=== PATIENT | female | born 1980 | race Caucasian/White ===

== ENCOUNTER → 2018-01-12 11:37 | Outpatient (CLI) | payer MEDICARE, OTHER | END | disposition home or self-care (01) | LOC: D.US 11:37 | DX: N18.5 Chronic kidney disease, stage 5 (principal) ==

== ENCOUNTER 2019-03-23 07:10 | Day surgery (SDC) | payer MEDICARE ==
[~2019-03-23] VITALS: Ht 157.5 cm; Wt 93.4 kg
[2019-03-23 07:29] LABS: BASOPHILS 0.5 % (0-2); HEMATOCRIT 35.6 % (36.0-48.0); HEMOGLOBIN 10.6 g/dL (12-16); IMMATURE GRANULOCYTES 0.2 % (0-5); LYMPHOCYTES 20.6 % (15-50); MCH 27.2 pg (26.0-34.0); MCHC 29.8 g/dL (31.0-37.0); MCV 91.3 fL (80.0-100.0); MEAN PLATELET VOLUME 9.5 fL (7.4-10.4); MONOCYTES 6.5 % (2-11); NEUTROPHILS 63.2 % (40-80); PLATELET COUNT 228 10x3/uL (130-400); RDW 18.4 % (11.5-14.5); WBC 10.1 10x3/uL (4.8-10.8)
[2019-03-23 07:40] LABS: CALCIUM 8.9 mg/dL (8.5-10.1); CARBON DIOXIDE 25.1 mmol/L (21.0-32.0); POTASSIUM - SERUM 4.1 mmol/L (3.5-5.1)
[2019-03-23 07:41] LABS: INR 1.17 (0.85-1.17); PROTIME 14.4 SECONDS (11.6-15.0)
[2019-03-23 08:14] VITALS: BMI 37.7
[2019-03-23] MEDS ORDERED: LYRICA75 MG PO (08:27)
[2019-03-23] MEDS ORDERED: RENA-VITE TABL0.8 MG PO (08:27)
[2019-03-23] MEDS ORDERED: COREG25 MG PO (08:28)
[2019-03-23] MEDS ORDERED: LEXAPRO20 MG PO (08:28)
[2019-03-23] MEDS ORDERED: KLONOPIN1 MG PO (08:28)
--- NOTE | 2019-03-23 15:23 | NUR ---
[facility] REF#[id number] EXP 2022-02-06 LOT# [id number]
--- NOTE | 2019-03-23 18:31 | NUR ---
RECEIVED PT FROM RECOVERY. PT IS LETHARGIC AND FOLLOWS COMMANDS. RR EVEN AND UNLABORED ON RA. VSS AND WNL. RIGHT CHEST HEMESPLIT IN PLACE. PD CATH IN PLACE AND INCISIONS TO ABDOMEN ARE C/D/I. INCISION TO LEFT ARM ARE C/D/I. NO S/S OF DISTRESS NOTED. PT DENIES ANY NEEDS AND DOES NOT C/O ANY PAIN AT THIS TIME. WILL CTM.
--- NOTE | 2019-03-23 19:10 | NUR ---
PT VERY LETHARGIC GLUCOSE CHECK 138 PULSE GOOD BOTH UPPER EXTREMITIES NOTED HEMOSPLIT IS NOT STITCHED IN AND ONLY A 4X4 COVERS THE AREA I REMOVED AND USED OPSITE AND TAPE TO MORE FIRMLY SECURE LCTA RESP UNLABERED BED LOW AND LOCKED AND FAMILY IS WITH PT
--- NOTE | 2019-03-23 19:11 | NUR ---
VS 97.4 135/56 73 97% 16 PT REMAINS VERY LETHARGIC
[2019-03-23 20:35] VITALS: BP 135/56
--- NOTE | 2019-03-23 22:28 | NUR ---
PT HAS SLOWLY COME AROUND AND IS NOW FULLY ALERT AND OX4 PAIN MED GIVEN AND LIQUIDS INTRODUCED AND NOW FOOD TOLERATING WELL
[2019-03-24] VITALS: BP 129/63
[2019-03-24 04:30] VITALS: BP 163/57
--- NOTE | 2019-03-24 08:15 | NUR ---
PT RESTING IN BED WITH EYES OPEN CALL LIGHT IN REACH NO PROBLEMS WILL MONITER
[2019-03-24 09:13] VITALS: BP 128/78
[2019-03-24 11:43] VITALS: Ht 157.5 cm; Wt 93.4 kg
[2019-03-24] MEDS ORDERED: BACTRIM 400/80 MG TA PO (11:44)
[2019-03-24] MEDS ORDERED: ULTRAM50 MG PO (11:45)
--- NOTE | 2019-03-24 11:50 | NUR ---
KWOK CATH DCD WITH TIP INTACT NO PROBLEMS TOLERATED WELL 400CC OUTPUT IN CATH BAG
--- NOTE | 2019-03-24 11:53 | NUR ---
PT GOING TO DIALYSIS IN BED
--- NOTE | 2019-03-24 12:00 | NUR ---
PT TAKEN TO DIALYSIS VIA BED
--- NOTE | 2019-03-24 13:27 | NUR ---
WRITTEN SCRIPT FOR BACTRIM 400/80 MG #1 WITH NO REFILLS AND ULTRAM 50 MG #30 WITH NO REFILLS COPIED TO CHART. I CALLED [facility] AND CLARIFIED BACTRIM SHOULD BE ONCE DAILY FOR 7 DAYS. THIS WILL BE CALLED TO PHARMACY.
[2019-03-24] MEDS ORDERED: BACTRIM 400-801 TAB (13:36)
[2019-03-24] MEDS ORDERED: TRAMADOL HCL E100 M1 (13:37)
--- NOTE | 2019-03-24 14:35 | NUR ---
PT RETURNED FROM DIALYSIS
--- NOTE | 2019-03-24 15:00 | NUR ---
PT DISCHARGED TO HOME VIA WHEELCHAIR WITH DISCHARGE SUMMARY AND MEDS REVIEWED WITH PT NO QUESTIONS OR CONCERNS
--- NOTE | 2019-03-24 15:08 | NUR ---
I have reviewed this patient and I concur with the Shift Assessment completed by the Licensed Practical Nurse today this shift.
--- NOTE | 2019-03-29 16:25 | OP ---
PATIENT NAME: JABARI STEVENSON MEDICAL RECORD: [id number] :81 LOCATION:[email or web address] ADMISSION DATE: SURGEON: CHANDLER MISTRY MD DATE OF OPERATION: 03/23/2019 REFERRED BY: Dr. Barragan. PREOPERATIVE DIAGNOSES: 1. End-stage renal disease, dependence on renal dialysis. 2. Obesity. 3. Type 1 diabetes. POSTOPERATIVE DIAGNOSES: 1. End-stage renal disease, dependence on renal dialysis. 2. Obesity. 3. Type 1 diabetes. 3. 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 OPERATION PERFORMED: 1. Laparoscopic implantation of a peritoneal dialysis catheter with presternal extension. 2. Implantation of an Artegraft AV dialysis access left upper arm, loop Artegraft from the proximal brachial artery to the proximal basilic vein. SURGEON: Chandler Mistry MD ANESTHESIA: ECONOMIC RESEARCH ASSISTANT/general endotracheal anesthesia. PREOPERATIVE NOTE: Ms. Stevenson is a 38-year-old juvenile onset insulin-dependent diabetic with end-stage renal disease, presently dialyzing with a tunneled dialysis catheter, which she has had for quite a while. She needs a long-term dialysis access and also she wants to try home peritoneal dialysis. She is to have a peritoneal catheter implanted today and also either fistula or more likely an AV graft in the left arm. DESCRIPTION OF PROCEDURE: Under anesthesia, the patient was placed in supine position and the abdomen and anterior chest were prepped and draped in a sterile manner. The abdomen was entered with a 5 mm XL Optiview type port and a 5-mm 0-degree laparoscope through a small incision in the left upper quadrant. Pneumoperitoneum was established with carbon dioxide and I switched to a 30-degree angled laparoscope and placed a 5-mm port in the left lower quadrant. I found that the urinary bladder was the size of a football enormously distended and filling the pelvis and anterior abdomen. A Khan catheter was placed and this drained in excess of 500 cc of foul smelling cloudy urine. This seems to be a chronic urinary retention and urinary infection problem. I then noted that the patient had moderately severe pelvic endometriosis with implants scattered around in the pelvis on the parietal peritoneum and on the posterior wall of the uterus and on the left ovary and some loops of small bowel and sigmoid colon. The left ovary was enlarged and cystic with areas of endometriosis and I did not find the right ovary. Findings were consistent with a previous right salpingo-oophorectomy. I identified the site for insertion of the Merit coiled catheter, I plan to implant a Merit coiled catheter with presternal extension. A vertical incision OPERATIVE REPORT [id number] JABARI STEVENSON was made to the left of the midline and the anterior rectus sheath was exposed. A pursestring suture of 0 Vicryl was placed. A small opening made in the rectus sheath and the underlying rectus muscle was infiltrated with 0.25% Marcaine with epinephrine. An introducer was then inserted through the muscle and while observed a laparoscopically it was passed through an inferiorly directed extraperitoneal tunnel, down almost into the pelvis before popping through into the peritoneal space. I inserted the catheter through that tunnel and positioned the coiled portion behind the uterus in the pelvis. The Dacron felt cuff was left in the substance of the rectus muscle just below the fascia, had a pursestring suture tied. I had previously identified site for exit of the catheter just medial and superior to the left breast. Two additional counterincisions were made. The 2 catheters were joined with a titanium connector and the connections reinforced with 2-0 Prolene ties. The catheter was pulled through a subcutaneous tunnel just anterior to the fascia and over the anterior chest and beneath the breast up to an incision over the left chest. The catheter came into just the right positions as planned and it was tunneled inferiorly and medially to the planned exit site. The catheter was then attached to a transfer set and 1000 cc of saline was allowed to run rapidly into the peritoneal space. The bag was then placed on the floor for gravity drainage and the saline was rapidly recovered proving the functionality of the dialysis catheter. The catheter was then flushed and capped. The wounds were irrigated with Ancef and gentamicin solution. Carbon dioxide was allowed to escape from the abdomen and the ports removed. The wounds were infiltrated with 0.25% Marcaine without epinephrine and closed with interrupted inverted 3-0 Vicryl and running intracuticular 4-0 Monocryl and Dermabond glue. Dressings of Maxorb Ag, Tegaderm, and Cavilon skin prep were applied. The patient was then completely reprepped and draped. The Khan catheter was left in its place. The arm was examined with a duplex ultrasound and I found that there was really no suitable vessels present for creation of a dialysis fistula, perhaps a basilic vein fistula could have been created, but I think it would have taken a long time to reach any maturity and usefulness and I elected to go ahead as I had expected with a Artegraft loop graft in the left arm. So, I believe that the patient would be at high risk for steal syndrome and this choice would be the least likely to result in steal. I made a vertical incision on the inside of the arm and exposed the proximal basilic vein and brachial artery. These vessels were controlled with Silastic loops. An Artegraft was prepared and bevelled. The artery was occluded and an arteriotomy made and the artery then flushed with heparinized saline and the Artegraft sutured to the arteriotomy with running 6-0 Prolene. The graft was then flushed with heparinized saline and the suture line found to be hemostatic. The graft was placed in circuitous very superficial subcutaneous tunnel and brought back to the primary incision and shortened and bevelled and prepared for anastomosis to the vein. One counter incision just above the antecubital space was utilized. The vein was occluded. It was flushed with heparinized saline proximally and distally. It was treated with topical papaverine and an end-to-side, end of graft to side of vein anastomosis performed with running 6-0 Prolene. When completed, the suture line was hemostatic and with release of the occluding clamps and loops, excellent flow immediately developed within the new AV graft and there was good pulsatile continuous flow within the basilic vein. There was excellent pulsatile continuous flow in the graft itself and there was persistence of good pulsatile flow signals in the radial and ulnar arteries at the left wrist and in the palmar arch. The hand remained pink with good capillary refill. OPERATIVE REPORT [id number] JABARI STEVENSON The patient's wounds were closed with interrupted inverted 3-0 Vicryl. They were infiltrated and irrigated with 0.25% Marcaine without epinephrine and the skin closed with running intracuticular 4-0 Stratafix. The incisions were further closed with Dermabond and dressed with Tegaderm and Maxorb AG and Cavilon skin prep. At that point, the patient was then awakened and extubated and taken to the recovery room in stable condition. Blood loss during the operation was about 10 cc and unreplaced. Sponges, instruments, and needles were accounted for. No drain was used and no surgical specimen was submitted for histopathology. Urine was submitted for urinalysis and culture and sensitivity. The patient received 1 gram of Ancef as prophylaxis prior to surgery and after the urinary tract infection was discovered, I gave her 1 gram of Rocephin intravenously. Obviously, she will need continued antibiotic therapy postop and I will leave this now to nephrology to manage. PLAN: She will be kept in the hospital at least overnight in observation to make certain that her postoperative pain is adequately controlled. She has had SEVERE ALLERGIC REACTIONS IN THE PAST TO OXYCODONE and is extremely concerned that she not be given oxycodone or hydrocodone for pain postop. We are going to try to make do with Tylenol and NSAIDs and tramadol. TRANSINT:[id number] Voice Confirmation ID: [id number] DOCUMENT ID: [id number] CHANDLER MISTRY MD at 1625 CC: DANIEL BARRAGAN [phone] DICTATION DATE: 03/23/19 172 [employer] PINION AND WHEEL: 03/23/19 [id number] [facility] 03/24/19 [id number] [place] [address]
== END 2019-03-24 15:00 | disposition home or self-care (01) ==
LOC: D.OPS 07:10 → D.M2 17:16 → D.OPS 03-24 15:00
PROVIDERS: ATTEND Internal Medicine Nephrology
DX: E10.22 Type 1 diabetes mellitus with diabetic chronic kidney disease (principal); N18.6 End stage renal disease; E66.9 Obesity, unspecified; N30.90 Cystitis, unspecified without hematuria; N80.8 Other endometriosis; R33.9 Retention of urine, unspecified